=== PATIENT | female | born 1980 | race Caucasian/White ===

== ENCOUNTER 2021-03-03 09:50 | Day surgery (SDC) | payer OTHER ==
[~2021-03-03] VITALS: Ht 152.4 cm; Wt 102.8 kg
[2021-03-03] VITALS (10 sets, daily range): BP systolic 108–143; BP diastolic 70–86; PULSE 65–83; TEMP 98
[2021-03-03] MEDS ORDERED: MICROZIDE12.5 MG PO (11:13)
[2021-03-03] MEDS ORDERED: K-DUR 10 MEQ T10 MEQ PO (11:14)
[2021-03-03] MEDS ORDERED: FLONASE NASAL S16 GM NS (11:15)
[2021-03-03] MEDS ORDERED: CLARITIN 1010 MG/TAB PO (11:16)
--- NOTE | 2021-03-03 12:08 | NUR ---
Initial visit; Patient requested that a Machine [employer] Goods Helper come pray with her prior to her surgical procedure. Machine [employer] Goods Helper offered comfort and prayer, thanking patient for choosing our hospital and praying for a rapid and thorough recovery.
[2021-03-03 12:28] LABS: HEMATOCRIT 38.3 % (37.0-47.0); HEMOGLOBIN 12.5 g/dl (12.5-16.0); MEAN CELL VOLUME 84 fl (80.0-100.0); MEAN CORPUSCULAR HEMOGLOBIN 28 pg (27.0-31.0); MEAN CORPUSCULAR HGB CONC 33 g/dl (33.0-37.0); MEAN PLATELET VOLUME 9.6 fl (7.4-10.4); PLATELET COUNT 282 K/mm3 (130-400); RED BLOOD COUNT 4.54 M/mm3 (4.10-5.30)
[2021-03-03 12:29] LABS: INR 1.1 (0.8-3.0)
[2021-03-03] MEDS ORDERED: DINO-LIFE1 CTB PO (12:30)
[2021-03-03] MEDS ORDERED: PROAIR HFA0.09 MG/AC IH (12:30)
[2021-03-03 12:32] LABS: CALCIUM 9.3 mg/dL (8.4-10.2); CREATININE, serum 0.36 (0.52-1.25); PARTIAL THROMBOPLASTIN TIME 31.4 SECONDS (26.0-37.0); POTASSIUM 3.9 mmol/L (3.4-5.0)
--- NOTE | 2021-03-03 13:19 | NUR ---
SEE MERGE FOR ALL MEDICATION ADMINISTRATION TIMES, INTRA AND POST SEDATION ASSESSMENTS
--- NOTE | 2021-03-03 16:30 | NUR ---
Air was removed from TR band in 2ml increments with no bleeding or complications. Rt radial puncture site covered with 2x2 and bandaid. DC instructions reviewed with pt and , both express understanding. Pt is steady on feet to restroom. Has tolerated PO fluids without issue, she is on clear liquid diet prior to her upcoming gastric sleeve. INT DC'd with catheter intact. SHe is assisted out by wheelchair to 's car.
== END 2021-03-03 16:30 | disposition home or self-care (01) ==
LOC: COL.CAR 09:50
PROVIDERS: Internal Medicine Cardiovascular Disease
DX: I25.10 Atherosclerotic heart disease of native coronary artery without angina pectoris (principal); I10 Essential (primary) hypertension; R60.0 Localized edema; Z79.899 Other long term (current) drug therapy
CPT/HCPCS: J1644; J2250; J3010

== ENCOUNTER 2021-07-09 08:09 | Observation (INO) | payer OTHER ==
[~2021-07-09] VITALS: Wt 77.3 kg
[~2021-07-09 08:09] MED LIST: CLARITIN 1010 MG/TAB PO; DINO-LIFE1 CTB PO; FLONASE NASAL S16 GM NS; K-DUR 10 MEQ T10 MEQ PO; MICROZIDE12.5 MG PO; PROAIR HFA0.09 MG/AC IH
[2021-07-09 08:46] LABS: BASO % 0.6 % (0.0-2.0); EOS # 0.3 K/mm3 (0.0-0.7); EOS % 5.2 % (0-4.0); GRAN # 3.1 K/mm3 (1.4-6.5); GRAN % 60.8 % (42.2-75.2); HEMOGLOBIN 12.1 g/dl (12.5-16.0); LYMPH # 1.4 K/mm3 (1.2-3.4); LYMPH % 27.2 % (20.0-51.0); MEAN CELL VOLUME 86 fl (80.0-100.0); MEAN CORPUSCULAR HEMOGLOBIN 29 pg (27.0-31.0); MEAN CORPUSCULAR HGB CONC 34 g/dl (33.0-37.0); MEAN PLATELET VOLUME 10.2 fl (7.4-10.4); MONO # 0.3 K/mm3 (0.1-0.6); PLATELET COUNT 228 K/mm3 (130-400); RED BLOOD COUNT 4.14 M/mm3 (4.10-5.30); REDCELL DISTRIBUTION WIDTH-CV 14.3 % (11.5-14.5)
[2021-07-09 08:48] LABS: HEMATOCRIT 35.6 % (37.0-47.0)
[2021-07-09 08:54] LABS: INR 1.3 (0.8-3.0); PROTHROMBIN TIME 13.9 SECONDS (9.7-12.8)
[2021-07-09 08:56] LABS: PARTIAL THROMBOPLASTIN TIME 31.7 SECONDS (26.0-37.0)
[2021-07-09 09:07] LABS: ALBUMIN 3.6 gm/dL (3.5-5.0); BILIRUBIN,TOTAL 0.3 mg/dL (0.2-1.2); CALCIUM 9.1 mg/dL (8.4-10.2); CREATININE, serum 0.63 mg/dL (0.57-1.11); POTASSIUM 3.3 mmol/L (3.5-4.5); TOTAL PROTEIN 6.2 gm/dL (6.2-8.1)
[2021-07-09 09:23] LABS: TROPONIN-I 0.021 ng/mL (0.00-0.033)
[2021-07-09] MEDS ORDERED: TYLENOL 325MG325 MG PO (11:49)
[2021-07-09] MEDS ORDERED: PATADAY5 ML OP (11:51)
[2021-07-09] MEDS ORDERED: PRILOSEC 20MG20 MG PO (11:51)
[2021-07-09] MEDS ORDERED: LIDODERM 5% PATC1 EA TP (11:52)
[2021-07-09] MEDS ORDERED: ACTIGALL 300MG300 MG PO (11:52)
[2021-07-09] MEDS ORDERED: MIRALAX PA17 GM/Dose PO (11:52)
[2021-07-09] MEDS ORDERED: HYDROCORTISONE30 G3 TP (11:53)
[2021-07-09 14:35] VITALS: BP 124/83; PULSE 59; TEMP 98.8
[2021-07-09 17:20] VITALS: BP 124/60; PULSE 59; TEMP 98.8
--- NOTE | 2021-07-09 19:30 | NUR ---
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 Assessment complete. A&Ox4. Denies pain/nausea/shortness of breath. Denies being dizzy-states she just feels weak. Plan of care discussed for this shift to include meds/heart monitor/calling for questions/concerns. Verbalizes understanding/denies current needs. Call light in reach. Will monitor.
[2021-07-09 19:34] VITALS: BP 118/77; PULSE 61; TEMP 98
[2021-07-10 00:35] VITALS: BP 89/51; PULSE 61; TEMP 98
[2021-07-10 00:50] VITALS: BP 98/57; PULSE 61
[2021-07-10 03:45] VITALS: BP 95/45; PULSE 52; TEMP 98.2
--- NOTE | 2021-07-10 04:00 | NUR ---
YOSEPH Espinosa-Hospitalist notified of blood pressure of 90s/40s. New orders received and initiated for a fluid bolus. Will recheck blood pressure post infusion.
[2021-07-10 05:42] VITALS: BP 105/52
--- NOTE | 2021-07-10 05:42 | NUR ---
Rested well this shift. Denied pain/nausea/shortness of breath/dizziness. Several episodes of hypotension-received a 500ml fluid bolus with slight increase in BP. Tele showing sinus dysfunction/sinus manasa. Denies current questions/concerns. Call light in reach. Will monitor.
[2021-07-10 06:58] LABS: BASO % 0.5 % (0.0-2.0); EOS # 0.3 K/mm3 (0.0-0.7); EOS % 4.6 % (0-4.0); GRAN # 3.5 K/mm3 (1.4-6.5); GRAN % 54.6 % (42.2-75.2); HEMOGLOBIN 11.6 g/dl (12.5-16.0); LYMPH # 2.1 K/mm3 (1.2-3.4); LYMPH % 33.7 % (20.0-51.0); MEAN CELL VOLUME 88 fl (80.0-100.0); MEAN CORPUSCULAR HEMOGLOBIN 30 pg (27.0-31.0); MEAN CORPUSCULAR HGB CONC 34 g/dl (33.0-37.0); MEAN PLATELET VOLUME 10.7 fl (7.4-10.4); MONO # 0.4 K/mm3 (0.1-0.6); MONO % 6.3 % (1.7-9.3); PLATELET COUNT 219 K/mm3 (130-400); RED BLOOD COUNT 3.92 M/mm3 (4.10-5.30); REDCELL DISTRIBUTION WIDTH-CV 14.3 % (11.5-14.5)
[2021-07-10 07:01] LABS: HEMATOCRIT 34.4 % (37.0-47.0)
[2021-07-10 07:13] LABS: ALBUMIN 3.2 gm/dL (3.5-5.0); CALCIUM 9.1 mg/dL (8.4-10.2); CREATININE, serum 0.57 mg/dL (0.57-1.11); PHOSPHOROUS 3.2 mg/dL (2.3-4.7); POTASSIUM 3.7 mmol/L (3.5-4.5)
[2021-07-10 08:04] VITALS: BP 102/74; PULSE 61; TEMP 97.6
--- NOTE | 2021-07-10 09:20 | NUR ---
notified YOSEPH Holm of pt reporting constipation, blurry vision, requesting medications, and Provider note for work.
--- NOTE | 2021-07-10 10:23 | NUR ---
NOTIFIED YOSEPH MEEHAN OF PT REPORTING TENDERNESS TO PALPATION, LEFT QUADRANTS.
--- NOTE | 2021-07-10 10:26 | NUR ---
PT ALERT AND ORIENTED. PT STATES BLURRY VISION, LEFT QUADRANT TENDERNESS WITH PALPATION, AND REQUESTING HOME MEDICATIONS. PT HAS CLEAR LUNGS TO AUSCULTATION. PT HAS BILATERAL LOWER EXTREMITY EDEMA, NON-PITTING. PT PULSES 2+, CAP REFILL <3S. PT CALL LIGHT WITHIN REACH, ABLE TO AMBULATE INDEPENDENTLY. NO OTHER NEEDS AT THIS TIME.
[2021-07-10 12:19] VITALS: BP 115/75; PULSE 55; TEMP 98
--- NOTE | 2021-07-10 13:11 | NUR ---
PT DISCHARGING. HEALTH SUMMARY AND EDUCATION GIVEN TO BEST OF ABILITY. PT STATES ABLE TO DRIVE SELF. PT IV DISCONTINUED AT THIS TIME.
== END 2021-07-10 13:32 | disposition home or self-care (01) ==
LOC: COL.ER 08:09 → MEDICAL 11:42
PROVIDERS: Family Medicine; ADMIT Internal Medicine
DX: R55 Syncope and collapse (principal); K21.9 Gastro-esophageal reflux disease without esophagitis; I10 Essential (primary) hypertension; I95.9 Hypotension, unspecified; R07.89 Other chest pain; Z79.899 Other long term (current) drug therapy
CPT/HCPCS: G0378; J7030; J7040

== ENCOUNTER 2022-02-05 12:49 | Emergency (ER) | payer OTHER ==
[~2022-02-05] VITALS: Ht 165.1 cm; Wt 75.0 kg
[~2022-02-05 12:49] MED LIST changes: +ACTIGALL 300MG300 MG PO; +HYDROCORTISONE30 G3 TP; +LIDODERM 5% PATC1 EA TP; +MIRALAX PA17 GM/Dose PO; +PATADAY5 ML OP; +PRILOSEC 20MG20 MG PO; +TYLENOL 325MG325 MG PO
[2022-02-05 13:10] VITALS: TEMP 98
[2022-02-05 16:13] LABS: BASO % 0.3 % (0.0-2.0); EOS # 0.1 K/mm3 (0.0-0.7); EOS % 1.7 % (0.0-4.0); GRAN # 4.2 K/mm3 (1.4-6.5); GRAN % 64.7 % (42.2-75.2); HEMOGLOBIN 12.1 g/dl (12.5-16.0); LYMPH # 1.9 K/mm3 (1.2-3.4); LYMPH % 28.4 % (20.0-51.0); MEAN CELL VOLUME 89 fl (80.0-100.0); MEAN CORPUSCULAR HEMOGLOBIN 30 pg (27-31); MEAN CORPUSCULAR HGB CONC 33 g/dl (33.0-37.0); MEAN PLATELET VOLUME 9.7 fl (7.4-10.4); MONO # 0.3 K/mm3 (0.1-0.6); MONO % 4.6 % (1.7-9.3); PLATELET COUNT 224 K/mm3 (130-400); RED BLOOD COUNT 4.06 M/mm3 (4.10-5.30)
[2022-02-05 16:14] LABS: HEMATOCRIT 36.2 % (37.0-47.0)
[2022-02-05 16:33] LABS: ALBUMIN 3.4 gm/dL (3.5-5.0); BILIRUBIN,TOTAL 0.5 mg/dL (0.2-1.2); CREATININE, serum 0.68 mg/dL (0.57-1.11); TOTAL PROTEIN 6.7 gm/dL (6.2-8.1)
[2022-02-05 16:53] LABS: TSH w REFLEX 2.124 uIU/mL (0.350-4.940)
[2022-02-05 17:08] VITALS: BP 117/40; PULSE 77
== END 2022-02-05 17:09 | disposition home or self-care (01) ==
LOC: COL.ER 12:49
PROVIDERS: Emergency Medicine
DX: R20.2 Paresthesia of skin (principal); Z28.310 Unvaccinated for COVID-19